=== PATIENT | male | born 1960 | race African-American/Black ===

== ENCOUNTER 2020-07-01 19:32 | Emergency (ER) | payer OTHER ==
[~2020-07-01] VITALS: Ht 182.9 cm; Wt 75.0 kg
[2020-07-01] MEDS ORDERED: BUPIVAcaine/PF 2.5 mg/ml (0.25%) 30ml vial IJ ONE (20:55)
[2020-07-01 21:02] VITALS: BP 119/77
[2020-07-01] MEDS ORDERED: bacitracin 15gm ointment TP ONE (21:40)
[2020-07-01] MEDS ORDERED: TETanus/Pertussis (Acell)/Diphther VAC/PF (Tdap-Adult) 0.5ml syringe IMVAC ONE (21:40)
[2020-07-01] MEDS ORDERED: CEPH500C5 PO (21:48)
== END 2020-07-01 22:13 | disposition home or self-care (01) ==
LOC: ER 19:34
DX: S61.211A Laceration without foreign body of left index finger without damage to nail, initial encounter (principal); Z79.2 Long term (current) use of antibiotics; X58.XXXA Exposure to other specified factors, initial encounter; Y93.89 Activity, other specified; Y92.89 Other specified places as the place of occurrence of the external cause; Y99.8 Other external cause status
CPT/HCPCS: 12001; 73140; 90471; 90715; 99283

== ENCOUNTER 2021-10-28 07:30 | Emergency (ER) | payer OTHER ==
[~2021-10-28] VITALS: Ht 182.9 cm; Wt 80.5 kg
[2021-10-28] MEDS ORDERED: ketorolac trometh. 30mg/ml inj. IM ONE (08:40)
[2021-10-28 09:05] LABS: BASOPHILS % (AUTO) 0.8 % (0-1); EOSINOPHILS # (AUTO) 0.3 X10'3 (0-0.9); EOSINOPHILS % (AUTO) 6.4 % (0-6); HEMATOCRIT 35.5 % (42.0-52.0); HEMOGLOBIN 12.6 g/dl (14.0-17.9); LYMPHOCYTES # (AUTO) 0.7 X10'3 (1.1-4.8); LYMPHOCYTES % (AUTO) 15.5 % (21-51); MEAN CORPUSCULAR HEMOGLOBIN 31.4 PG (27.0-31.0); MEAN CORPUSCULAR HGB CONC 35.4 g/dL (33.0-36.5); MEAN CORPUSCULAR VOLUME 88.7 FL (78-98); MEAN PLATELET VOLUME 5.9 FL (7.4-10.4); MONOCYTES # (AUTO) 0.6 X10'3 (0-0.9); MONOCYTES % (AUTO) 12.4 % (2-12); NEUTROPHILS # (AUTO) 2.9 X10'3 (1.8-7.7); NEUTROPHILS % (AUTO) 64.9 % (42-75); PLATELET COUNT 345 X10'3 (140-440); RED BLOOD COUNT 4.01 X10'6 (4.70-6.10); RED CELL DISTRIBUTION WIDTH 13.4 % (11.5-14.5); WHITE BLOOD COUNT 4.5 X10'3 (4.5-11.0)
[2021-10-28 09:13] LABS: ANION GAP 8 (8-16); CHLORIDE 93 MMOL/L (99-107); GLUCOSE 95 MG/DL (70-104); POTASSIUM 3.6 MMOL/L (3.5-5.1); SODIUM 128 MMOL/L (135-145); TOTAL CARBON DIOXIDE 26.8 MMOL/L (24-32)
[2021-10-28 09:14] LABS: ALANINE AMINOTRANSFERASE 22 U/L (12-78); ALBUMIN 3.6 G/DL (3.4-5.0); ALBUMIN/GLOBULIN RATIO 0.8 (1.1-1.5); ALKALINE PHOSPHATASE 62 IU/L (46-116); ASPARTATE AMINO TRANSFERASE 26 U/L (10-37); BILIRUBIN,TOTAL 0.5 MG/DL (0.1-1.0); BLOOD UREA NITROGEN 20 MG/DL (7-18); BUN/CREATININE RATIO 14.4 (5.4-32.0); C-REACTIVE PROTEIN 11.75 MG/DL (0.0-0.5); CALCIUM 8.9 MG/DL (8.5-10.1); CREATININE 1.39 MG/DL (0.60-1.10); TOTAL PROTEIN 7.9 G/DL (6.4-8.2); eGFR 63 ML/MIN
[2021-10-28] MEDS ORDERED: PRED20TA PO (09:55)
[2021-10-28 10:02] VITALS: BP 106/76
== END 2021-10-28 10:04 | disposition home or self-care (01) ==
LOC: ER 07:31
DX: R22.32 Localized swelling, mass and lump, left upper limb (principal); M79.642 Pain in left hand; I10 Essential (primary) hypertension; Z72.89 Other problems related to lifestyle; Z79.899 Other long term (current) drug therapy
CPT/HCPCS: 36415; 73110; 73120; 80053; 84145; 84550; 85025; 85651; 86140; 96372; 99284; J1885

== ENCOUNTER 2023-07-15 09:16 | Emergency (ER) | payer OTHER ==
[~2023-07-15] VITALS: Ht 182.9 cm; Wt 81.7 kg
[~2023-07-15 09:16] MED LIST: AMLO10TA PO; CHOL20004 PO; FOLI1TAB27 PO; PANT40TA54 PO; thiamine tablet PO
[2023-07-15] MEDS: dexamethasone sod phosphate 10mg/ml inj PO STA (11:03)
[2023-07-15] MEDS: HYDROcodone/acetaminophen 5mg/325mg tablet PO ONE (11:03)
[2023-07-15] MEDS: ketorolac trometh inj. 60 MG/2 ML VIAL IM ONE (11:35)
[2023-07-15 12:07] LABS: BASOPHILS % (AUTO) 0.5 % (0-1); EOSINOPHILS # (AUTO) 0.1 X10'3 (0-0.9); HEMOGLOBIN 13.7 g/dl (14.0-17.9); LYMPHOCYTES # (AUTO) 0.6 X10'3 (1.1-4.8); LYMPHOCYTES % (AUTO) 11.7 % (21-51); MEAN CORPUSCULAR HEMOGLOBIN 30.6 PG (27.0-31.0); MEAN CORPUSCULAR HGB CONC 33.5 g/dL (33.0-36.5); MEAN CORPUSCULAR VOLUME 91.3 FL (78-98); MEAN PLATELET VOLUME 7.1 FL (7.4-10.4); MONOCYTES # (AUTO) 0.5 X10'3 (0-0.9); MONOCYTES % (AUTO) 10.3 % (2-12); NEUTROPHILS # (AUTO) 3.9 X10'3 (1.8-7.7); NEUTROPHILS % (AUTO) 75.5 % (42-75); PLATELET COUNT 261 X10'3 (140-440); RED BLOOD COUNT 4.49 X10'6 (4.70-6.10); RED CELL DISTRIBUTION WIDTH 14.3 % (11.5-14.5); WHITE BLOOD COUNT 5.2 X10'3 (4.5-11.0)
[2023-07-15 12:30] LABS: ALANINE AMINOTRANSFERASE 23 U/L (12-78); ALBUMIN/GLOBULIN RATIO 1.1 (1.1-1.5); ALKALINE PHOSPHATASE 67 IU/L (46-116); ANION GAP 10 (8-16); ASPARTATE AMINO TRANSFERASE 20 U/L (10-37); BILIRUBIN,TOTAL 1.2 MG/DL (0.1-1.0); BLOOD UREA NITROGEN 11 MG/DL (7-18); BUN/CREATININE RATIO 9.2 (10.0-20.0); C-REACTIVE PROTEIN 2.93 MG/DL (0.0-0.5); CALCIUM 8.7 MG/DL (8.5-10.1); CHLORIDE 102 MMOL/L (99-107); GLUCOSE 148 MG/DL (70-104); POTASSIUM 4.3 MMOL/L (3.5-5.1); SODIUM 136 MMOL/L (135-145); TOTAL CARBON DIOXIDE 23.9 MMOL/L (24-32); TOTAL PROTEIN 7.7 G/DL (6.4-8.2); eCRCL 70 ML/MIN; eGFR 74 ML/MIN
[2023-07-15 12:34] LABS: URIC ACID 6.9 MG/DL (3.5-7.2)
[2023-07-15] MEDS ORDERED: INDO-12 PO (13:49)
[2023-07-15 14:04] VITALS: BP 150/101; PULSE 96; RESP 16; TEMP 98.5; O2SAT 97
== END 2023-07-15 14:07 | disposition home or self-care (01) ==
LOC: ER 09:16
DX: M10.9 Gout, unspecified (principal)
CPT/HCPCS: 36415; 73080; 80053; 83605; 84145; 84550; 85025; 85651; 86140; 87040; 96372; 99284; J1100; J1885

== ENCOUNTER 2024-08-01 22:36 | Emergency (ER) | payer OTHER ==
[~2024-08-01] VITALS: Ht 182.9 cm; Wt 81.8 kg
[~2024-08-01 22:36] MED LIST changes: +INDO-12 PO
[2024-08-01 22:38] VITALS: BP 159/93; RESP 18; O2SAT 99
[2024-08-01] MEDS: LIDOcaine 1% W/epiNEPHrine 1:100,000 20ml vial IJ STA (23:15)
[2024-08-01 23:53] VITALS: TEMP 97.5
== END 2024-08-02 00:09 | disposition home or self-care (01) ==
LOC: ER 22:36
DX: S71.112A Laceration without foreign body, left thigh, initial encounter (principal); I10 Essential (primary) hypertension; W26.0XXA Contact with knife, initial encounter; Y93.89 Activity, other specified; Y92.89 Other specified places as the place of occurrence of the external cause; Y99.8 Other external cause status
CPT/HCPCS: 12002; 99282